=== PATIENT | male | born 1995 ===

== ENCOUNTER 2020-09-13 13:27 | Emergency (ER) | payer OTHER ==
[~2020-09-13] VITALS: Ht 170.2 cm; Wt 92.2 kg
[2020-09-13 13:30] VITALS: BP 127/70
[2020-09-13] MEDS ORDERED: PROPARACAINE OPHTH 0.5%, 15ML ONE (13:41)
--- NOTE | 2020-09-13 13:49 | NUR ---
PATIENT WALKED BACK FROM TRIAGE WITH CHIEF C/O POSSIBLE FOREIGN OBJECT IN LEFT EYE. PATIENT STATES HE WAS AT WORK OUTSIDE AND "FELT SOMETHINE BLOW IN MY EYE." PATIENT USED WORK FIRST AID KIT TO FLUSH HIS LEFT EYE, BUT REPORTS NO RELIEF. NO SIGNS OF ACUTE DISTRESS, UNABLE TO FULLY OPEN LEFT EYE. ERMD AT BEDSIDE FOR EVALUATION.
--- NOTE | 2020-09-13 14:37 | NUR ---
Patient given discharge instructions and they have confirmed that they understand the instructions. Worker's comp paperwork given to patient filled out by physician. Patient ambulatory with steady gait from ED.
== END 2020-09-13 14:38 | disposition home or self-care (01) ==
LOC: ED 14:03
DX: S05.02XA Injury of conjunctiva and corneal abrasion without foreign body, left eye, initial encounter (principal); X58.XXXA Exposure to other specified factors, initial encounter; Y93.89 Activity, other specified; Y92.89 Other specified places as the place of occurrence of the external cause; Y99.8 Other external cause status
CPT/HCPCS: 99283